=== PATIENT | male | born 1990 | race Caucasian/White ===

== ENCOUNTER 2019-09-07 14:17 | Emergency (ER) | payer SELFPAY ==
[~2019-09-07] VITALS: Ht 170.2 cm; Wt 69.2 kg
[~2019-09-07 14:17] MED LIST: HC30CR25 TOP
[2019-09-07 14:20] VITALS: Ht 170.2 cm; Wt 69.2 kg
[2019-09-07 17:09] VITALS: BP 132/74; PULSE 71; RESP 18
== END 2019-09-07 17:12 | disposition home or self-care (01) ==
LOC: FTE 14:17
DX: R21 Rash and other nonspecific skin eruption (principal); Z87.891 Personal history of nicotine dependence
CPT/HCPCS: 99282